=== PATIENT | female | born 1950 | race Caucasian/White ===

== ENCOUNTER → 2017-11-24 | Day surgery (SDC) | payer OTHER ==
--- NOTE | 2017-11-22 15:32 | Diagnostic Imaging Report ---
PROCEDURE: Frontal and lateral views of the chest. COMPARISON: None. INDICATIONS: PRE-OP FINDINGS: Lines/tubes: None. Lungs: The lungs are well inflated and clear. There is no evidence of pneumonia or pulmonary edema. Pleura: There is no pleural effusion or pneumothorax. Heart and mediastinum: Enlarged cardiac silhouette. Pulmonary vasculature is normal. Bones: No acute bony abnormality. Degenerative changes in the thoracic spine. IMPRESSION: 1. enlarged cardiac silhouette, without acute cardiopulmonary disease. Geoff Erwin M.D. Dictated by: Geoff Erwin M.D. on 11/22/2017 at 15:35 Electronically approved by: Geoff Erwin M.D. on 11/22/2017 at 15:35
[2017-11-22 15:36] LABS: BASOPHILS % 0.4 % (0.0-1.0); EOSINOPHILS # (AUTO) 0.2 (0.0-0.4); EOSINOPHILS % 2.2 % (0.0-6.0); HEMATOCRIT 41.9 % (34.2-44.1); HEMOGLOBIN 14.2 g/dL (12.0-16.0); LYMPHOCYTES # (AUTO) 1.7 (1.0-3.2); LYMPHOCYTES % 23.4 % (18.0-39.1); MEAN CORPUSCULAR HEMOGLOBIN 32.8 pg (28-32); MEAN CORPUSCULAR HGB CONC 33.9 g/dL (31-35); MEAN CORPUSCULAR VOLUME 96.8 fL (81-99); MONOCYTES # (AUTO) 0.6 (0.2-0.8); MONOCYTES % 8.5 % (4.4-11.3); NEUTROPHILS # (AUTO) 4.8 (2.1-6.9); PLATELET COUNT 184 x10e3/uL (140-360); RED BLOOD COUNT 4.33 x10e6/uL (3.6-5.1); RED CELL DISTRIBUTION WIDTH 14.7 % (11.7-14.4)
[2017-11-22 15:54] LABS: ANION GAP 13.4 mmol/L (8-16); CALCIUM 9.9 mg/dL (8.4-10.2); CREATININE, SERUM 1.2 mg/dL (0.57-1.11); POTASSIUM 3.4 mmol/L (3.5-5.1)
[~2017-11-24] MED LIST: BUPIVACAINE HCL 0.5% INJ 30 ML VIAL INJ ONE; CEFAZOLIN SOD 1 GM VIAL ONE; DEXAMETHASONE SOD PHOS INJ 4 MG/ML VIAL ONE; EPHEDRINE SULFATE INJ 50 MG/10 ML SYR ONE; FENTANYL CITRATE/PF 100MCG/2 ML INJ ONE; GABAPENTIN300 MG PO; LIDOCAINE HCL 2% LOCAL INJ 5 ML SDV VIAL INJ ONE; LIPITOR20 MG PO; METOPROLOL-HCT1 EAC1 PO; MIDAZOLAM HCL 2 MG/2 ML VIAL ONE; MUPIROCIN 2% OINT 22 GM TUBE ONE; ONDANSETRON HCL INJ 2 MG/ML VIAL ONE; PROPOFOL IV EMULSION 10 MG/ML 20 ML VIAL ONE; SEROQUEL25 MG PO; SEVOFLURANE INHAL SOLN 250 ML PEN BTL ONE; TOPIRAMATE100 MG PO; WARFARIN SODIUM5 MG PO; XARELTO20 MG PO
[2017-11-24 06:10] LABS: INR 1.06
[2017-11-24 06:11] LABS: PARTIAL THROMBOPLASTIN TIME 28.9 seconds (23.8-35.5)
--- NOTE | 2017-11-24 07:53 | Operative Report ---
DATE OF PROCEDURE: November 24, 2017 PREOPERATIVE DIAGNOSIS: Left foot first metatarsocuneiform exostosis. POSTOPERATIVE DIAGNOSIS: Left foot first metatarsocuneiform exostosis. PLANNED PROCEDURE: Left first metatarsocuneiform exostectomy. SURGEON: Dr. Avelino DPM DIE HARDENER: Henry Velasquez DPM ANESTHESIA: General with a postoperative block consisting of 10 mL of 0.5% Marcaine plain mixed with 1 mL of dexamethasone phosphate. HEMOSTASIS: Pneumatic thigh tourniquet set at 350 mmHg for a total time of approximately 15 minutes. MATERIALS: 3-0 Vicryl, 4-0 nylon. ESTIMATED BLOOD LOSS: Less than 10 mL. PATHOLOGY: None. PROCEDURE NOTE: The patient was seen in the preoperative waiting room where the correct procedure and site were identified. The patient was brought to the operating room and placed on the operating table in the supine position. General anesthesia was initiated at this time. A well-padded pneumatic tourniquet was placed about the patient's left thigh. The left foot, ankle, and leg were then scrubbed, prepped, and draped in the usual aseptic manner. The left foot, ankle, and leg were exsanguinated with an Esmarch bandage, and the pneumatic thigh tourniquet was inflated to 350 mmHg for a total time of approximately 15 minutes. Attention was directed to the dorsomedial aspect of the patient's left foot where a large approximately 2 cm x 1.5 cm x 1 cm exostosis is palpable along the dorsomedial aspect of the first metatarsocuneiform joint. Utilizing a #15 blade, a 4-cm linear incision was made directly over the exostosis. Incision was carried through the subcutaneous tissue, them from deeper underlying structures. All vital neurovascular structures were identified, retracted medially and laterally, and all bleeders were cauterized and ligated as deemed necessary. At this time, an incision was made in the joint capsule directly over the first metatarsocuneiform joint to allow for good visualization of the exostosis. Utilizing an osteotome and mallet, rongeur and rotary cathy, the exostosis was excised and smoothed down to anatomic alignment. The wound was then flushed with copious amounts of sterile saline. Capsule and deep tissue reapproximated with 3-0 Vicryl, subcutaneous tissue with 3-0 Vicryl, and the skin was closed using a running interlocking stitch with 4-0 Prolene. Incision site was dressed with Adaptic, 4 x 4's, Kerlix, Natan wrap, and a postop shoe. Patient tolerated the procedure and anesthesia well. The patient was transferred to the postoperative recovery unit with vital signs stable and vascular status intact. The patient was monitored there for a short period of time before being sent home with the following written and oral instructions: 1. Keep the dressing clean, dry, and intact. 2. The patient is to remain partial weightbearing in a walker to avoid excessive ambulation until being seen in the office. 3. The patient was given the office number and instructed to contact us if any problems should arise. Dictated by: Henry Velasquez DPM Job#: [id number]
--- OUTSIDE RECORDS SUMMARY | 2018-03-08 13:48 | XMS REPORT ---
Author Author [facility] Address Unknown Phone Unavailable Care Team Providers Care Corporate Safety Coordinator Name Role Phone Praveen BRAND Unavailable Unavailable Problems This patient has no known problems. Allergies, Adverse Reactions, Alerts This patient has no known allergies or adverse reactions. Medications This patient has no known medications. Results Test Description Test Time Test Comments Text Results Atomic Results Result Comments CHEST 2 VIEWS 2017-11-22 15:35:00 [place] [id number] [place] [id number] Patient Name: YAYO APPIAH MR #: [id number] : 1950 Age/Sex: 67/F Req #: [id number] Adm Physician: Ordered by: JIMY VARGAS MD Report #: [id number] Location: OR Room/Bed: Procedure: [id number] DX/CHEST 2 VIEWS Exam Date: 11/22/17 Exam Time: 1515 REPORT STATUS: Signed PROCEDURE: Frontal and lateral views of the chest. COMPARISON: None. INDICATIONS: PRE-OP FINDINGS: Lines/tubes: None. Lungs: The lungs are well inflated and clear. There is no evidence of pneumonia or pulmonary edema. Pleura: There is no pleural effusion or pneumothorax. Heart and mediastinum: Enlarged cardiac silhouette. Pulmonary vasculature is normal. Bones: No acute bony abnormality. Degenerative changes in the thoracic spine. IMPRESSION: 1. enlarged cardiac silhouette, without acute cardiopulmonary disease. Will Erwin M.D. Dictated by: Will Erwin M.D. on 11/22/2017 at 15:35 Electronically approved by : Will Erwin M.D. on 11/22/2017 at 15:35 Dictated By: WILL ERWIN MD [id number] Transcribed By: ALTAF on 11/22/17 1535 COPY TO: JIMY VARGAS MD
== END | disposition home or self-care (01) ==
LOC: OR 05:39
PROVIDERS: ATTEND Podiatrist Foot & Ankle Surgery
DX: M77.52 Other enthesopathy of left foot and ankle (principal); I10 Essential (primary) hypertension; Z88.2 Allergy status to sulfonamides; Z01.810 Encounter for preprocedural cardiovascular examination; Z01.812 Encounter for preprocedural laboratory examination; Z01.818 Encounter for other preprocedural examination; Z79.01 Long term (current) use of anticoagulants; Z79.02 Long term (current) use of antithrombotics/antiplatelets; Z86.73 Personal history of transient ischemic attack (TIA), and cerebral infarction without residual deficits; Z87.891 Personal history of nicotine dependence
CPT/HCPCS: 28104; 36415 ×2; 71046; 80048; 85025; 85610; 85730; 93005; J0690; J1100; J2001; J2250; J2405

== ENCOUNTER → 2018-12-28 | Outpatient (CLI) | payer OTHER ==
[~2018-12-28] MED LIST changes: -BUPIVACAINE HCL 0.5% INJ 30 ML VIAL INJ ONE; +CAFERGOT TABLE1 EACH PO; -CEFAZOLIN SOD 1 GM VIAL ONE; -DEXAMETHASONE SOD PHOS INJ 4 MG/ML VIAL ONE; -EPHEDRINE SULFATE INJ 50 MG/10 ML SYR ONE; -FENTANYL CITRATE/PF 100MCG/2 ML INJ ONE; +IOPAMIDOL 370 MG/ML 200 ML INFUS..BTL INJ ONE; -LIDOCAINE HCL 2% LOCAL INJ 5 ML SDV VIAL INJ ONE; -MIDAZOLAM HCL 2 MG/2 ML VIAL ONE; -MUPIROCIN 2% OINT 22 GM TUBE ONE; +NORCO 7.5-3251 EACH PO; -ONDANSETRON HCL INJ 2 MG/ML VIAL ONE; -PROPOFOL IV EMULSION 10 MG/ML 20 ML VIAL ONE; -SEVOFLURANE INHAL SOLN 250 ML PEN BTL ONE; +SODIUM CHLORIDE 0.9% 100 ML 100 ML ONE; +SODIUM CHLORIDE 0.9% 500ML 500 ML ONE; +ZOMIG5 MG PO
[2018-12-28 12:16] LABS: CREATININE, SERUM 1.05 mg/dL (0.57-1.11)
--- NOTE | 2018-12-28 16:35 | Diagnostic Imaging Report ---
CTA NECK HISTORY: Right carotid stenosis COMPARISON: None. TECHNIQUE: CTA of the neck was performed with intravenous iodine based contrast. Coronal, sagittal, and oblique maximum intensity projection reformations were created. One or more of the following dose reduction techniques were used: Automated exposure control, adjustment of the mA and/or kV according to patient size, and/or utilization of iterative reconstruction technique. 100 mL of Isovue-370 were administered. DISCUSSION: If present, any cervical carotid stenosis will be measured as a percentage relative to the viejas artery distal to the stenosis (NASCET). Mild calcifications are seen in the aortic arch and proximal great vessels. The left common carotid and innominate arteries have a common origin, a normal variant. Right Carotid: Mild to moderate calcified plaque is seen at the right carotid bulb. Associated focal calcified intimal flap at the right carotid bulb may be due to chronic dissection. There is up to 80% focal stenosis in the proximal right internal carotid artery. The upper right cervical internal carotid artery is mildly tortuous. 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 Left Carotid: Moderate calcified plaque in the left carotid bulb causes 50-69% focal stenosis in the proximal left internal carotid artery. Right vertebral artery: Mild scattered calcified plaque in the V1 and V2 segments do not cause significant stenosis. Left vertebral artery: Mild scattered calcified plaque in the V1, V2, and V3 segments do not cause significant stenosis. The intracranial arterial vasculature is partially visualized. Mild scattered calcified atherosclerosis is seen in the anterior and posterior circulation without significant stenosis. Additional findings: There is focal mucosal thickening in the right valleculae. The right vocal cord is displaced medially with associated right piriform sinus enlargement; this is suggestive of right vocal cord paralysis. Mild mosaic attenuation in the upper lungs is nonspecific. There are mild to moderate degenerative changes throughout the spine. Coronary artery calcifications are partially visualized. IMPRESSION: 1. Mild to moderate right carotid bulb calcified plaque with focal calcified intimal flap, which may be due to chronic dissection. There is up to 80% associated focal stenosis in the proximal right internal carotid artery. 2. 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 3. Moderate left carotid bulb calcified plaque causes 50-69% focal stenosis in the proximal left internal carotid artery. 4. Mild scattered bilateral cervical carotid artery calcified plaque without significant stenosis. Signed by: Dr. Hood Dutta M.D. on 12/28/2018 4:32 PM
== END ==
LOC: CT 11:33 → MERGE 11:33
PROVIDERS: ATTEND Internal Medicine Critical Care Medicine
DX: I65.21 Occlusion and stenosis of right carotid artery (principal)
CPT/HCPCS: 36415; 70498; 82565; 84520; J7040; Q9967

== ENCOUNTER → 2019-01-03 | Day surgery (SDC) | payer OTHER ==
[2019-01-01 13:48] LABS: BASOPHILS % 0.5 % (0.0-1.0); EOSINOPHILS # (AUTO) 0.2 (0.0-0.4); EOSINOPHILS % 3.2 % (0.0-6.0); HEMATOCRIT 38.2 % (34.2-44.1); HEMOGLOBIN 12.6 g/dL (12.0-16.0); LYMPHOCYTES # (AUTO) 1.4 (1.0-3.2); LYMPHOCYTES % 24.5 % (18.0-39.1); MEAN CORPUSCULAR HEMOGLOBIN 31.7 pg (28-32); MONOCYTES # (AUTO) 0.5 (0.2-0.8); NEUTROPHILS # (AUTO) 3.6 (2.1-6.9); NEUTROPHILS % 63.3 % (38.7-80.0); PLATELET COUNT 152 x10e3/uL (140-360); RED BLOOD COUNT 3.98 x10e6/uL (3.6-5.1); RED CELL DISTRIBUTION WIDTH 14.2 % (11.7-14.4)
[2019-01-01 13:57] LABS: INR 1.42; PROTHROMBIN TIME 17.9 seconds (11.9-14.5)
[2019-01-01 13:58] LABS: PARTIAL THROMBOPLASTIN TIME 37.2 seconds (23.8-35.5)
[2019-01-01 14:07] LABS: ALBUMIN 3.5 g/dL (3.5-5.0); ALBUMIN/GLOBULIN RATIO 0.8 (0.8-2.0); ANION GAP 14.3 mmol/L (8-16); CREATININE, SERUM 1.1 mg/dL (0.57-1.11); POTASSIUM 3.3 mmol/L (3.5-5.1)
--- NOTE | 2019-01-01 14:16 | Diagnostic Imaging Report ---
EXAMINATION: CHEST 2 VIEWS INDICATION: Pre-operative COMPARISON: None FINDINGS: TUBES and LINES: None. LUNGS: The lung volumes are normal. No focal consolidation or pulmonary edema. 8 mm calcified granuloma in the left lung base. PLEURA: No pleural effusion or pneumothorax. HEART AND MEDIASTINUM: The heart is at the upper limits of normal for size. Atherosclerotic calcifications of the thoracic aorta. BONES AND SOFT TISSUES: No acute fracture or dislocation. UPPER ABDOMEN: No free air under the diaphragm. IMPRESSION: No focal pneumonia or pulmonary edema. Borderline cardiomegaly. Signed by: Hernan Menchaca MD on 01/01/2019 2:13 PM
--- NOTE | 2019-01-01 15:15 | NUR ---
Spoke with Corinne Stewart RN with Dr. Jeff's office and notified her of labs: potassium 3.3, estimated GFR 50, AST 63, and ALT 56; chest x-ray results: borderline cardiomegaly. Corinne Stewart RN stated she will notify Dr. Jeff. Addendum: 01/01/19 at 1519 by Jessenia Campos RN Also notified Corinne Stewart RN that PT 17.9, INR 1.47, PTT 37.2.
[2019-01-03] VITALS (10 sets, daily range): BP systolic 102–137; BP diastolic 52–80
[~2019-01-03] VITALS: Ht 160 cm; Wt 73.9 kg
[~2019-01-03] MED LIST changes: +FENTANYL CITRATE/PF 100MCG/2 ML INJ ONE; +HEPARIN SOD (PORCINE) 1000 UNIT/ML 30ML ONE; +HEPARIN SOD/SOD CHLORIDE 2,000 ML ONE; +LIDOCAINE HCL 2% LOCAL 20 ML VIAL ONE; +MIDAZOLAM HCL 2 MG/2 ML VIAL ONE; +NITROGLYCERIN/D5W 200 MCG/ML 250 ML ONE; -SODIUM CHLORIDE 0.9% 100 ML 100 ML ONE; +SODIUM CHLORIDE 0.9% 1000ML 1,000 ML ONE; -SODIUM CHLORIDE 0.9% 500ML 500 ML ONE; +VERAPAMIL HCL 2.5 MG/ML 2 ML VIAL ONE
[2019-01-03 07:13] LABS: INR 0.97; PROTHROMBIN TIME 13.4 seconds (11.9-14.5)
--- NOTE | 2019-01-03 09:45 | NUR ---
0945 bedside report received from Sukh RIGGS. Identiferx2 [facility] no fix Surgical followup scheduled DR Goodwin service.Alert oriented and appropriate, PERRLA, respirations even and unlabored to room air. Pulses x4 extremities equal and strong. Pedal pulses PT/DP x4 Cap fill brisk < 3 sec. Skin warm and dry integrity appears D/I. IV 20g to rt wrist presents healthy w/o s/s of infiltration or complaint. Abdomen soft and supple. pt offered toileting, denies need to urinate or defecate. No personal affects with patient. Family . Pt and family verbalizes understanding of POC. Currently w/o complaint of pain or need. Rt tr band air removal in progress Reported approx 6cc remain in bladder TR band NO gross issues pain pallor pressure or dysrhythmia Normal neuro vascular function. prosper/johny
--- NOTE | 2019-01-03 09:45 | NUR ---
0945am RADIAL Compression removal: Initial Cuff volume (12cc reported +6) -2cc cc Removed No hematoma/bleeding noted with normal neurovascular function. Air removal completed Stasis achieved sterile 2x2,Tegaderm, Coban dressing No hematoma, bleeding noted with no neurovascular function. Wrist splint in place. Pt instructed on POC. Ds/Rn
--- NOTE | 2019-01-03 10:15 | NUR ---
1015am Pt meets DC criteria. Rt Radial assessed for s/s of complication and presence of hematoma. D/I warm, dry, no discolor, and pulses present. IV removed from Rt Wrist. Distal tip appears intact. VS WNL. Pt denies pain, sob, or need at this time. Family at bedside. Review of discharge paperwork and follow up instructions. verbalized understanding. Pt to wheelchair and transported to front of hospital. Transferred to private vehicle under own strength w/o incident with DC paperwork in hand ds/rn
--- NOTE | 2019-01-03 14:42 | Operative Report ---
DATE OF PROCEDURE: SURGEON: Edwin Jeff MD PROCEDURE: Left heart catheterization. INDICATION: Aortic stenosis. COMPLICATIONS: None. ANESTHESIA: Versed and fentanyl. TECHNIQUE: As follows, the right wrist was draped and prepped in the usual manner. The area was anesthetized with lidocaine. Standard Seldinger technique was used to place a 6-Kyrgyz sheath into the right radial artery without difficulty. A TIG catheter was used to selectively engage the left coronary artery and to selectively engage the right coronary artery. There were no complications. RESULTS: As follows: 1. Normal left main trunk. 2. There is a large left anterior descending artery which gave rise to a medium-sized diagonal branch. There was some calcification in the left anterior descending artery with no significant stenosis. 3. There was a medium-sized AV circumflex artery which gave rise to a large bifurcating obtuse marginal branch. There was 80% stenosis in the mid AV circumflex artery. 4. There was a large dominant right coronary artery which had 100% proximal occlusion. 5. Left ventriculogram was not done. The patient had severe aortic stenosis on the echocardiogram. CONCLUSION: The patient has severe aortic stenosis with 100% occlusion of the right coronary artery and 80% stenosis in the AV circumflex artery. CV surgery consultation will be required. Edwin Jeff MD DSH/MODL /[id number]
== END | disposition home or self-care (01) ==
LOC: CATH LAB 06:10
PROVIDERS: ATTEND Internal Medicine Cardiovascular Disease
DX: I35.0 Nonrheumatic aortic (valve) stenosis (principal); I25.10 Atherosclerotic heart disease of native coronary artery without angina pectoris; I25.82 Chronic total occlusion of coronary artery; I10 Essential (primary) hypertension; I71.4 Abdominal aortic aneurysm, without rupture; R09.89 Other specified symptoms and signs involving the circulatory and respiratory systems; E78.5 Hyperlipidemia, unspecified; Z79.01 Long term (current) use of anticoagulants; Z87.891 Personal history of nicotine dependence
CPT/HCPCS: 36415 ×2; 71046; 80053; 85025; 85610 ×2; 85730; 93454; C1769; C1887; J1644; J2001; J2250; J3010; J7030; Q9967

== ENCOUNTER → 2020-11-27 | Day surgery (SDC) | payer MEDICARE, BC ==
[2020-11-25 12:17] LABS: BASOPHILS % 0.4 % (0.0-1.0); EOSINOPHILS % 1.7 % (0.0-6.0); HEMATOCRIT 43.6 % (34.2-44.1); HEMOGLOBIN 14.1 g/dL (12.0-16.0); INR 0.95; LYMPHOCYTES % 24.2 % (18.0-39.1); MEAN CORPUSCULAR HEMOGLOBIN 33.1 pg (28-32); MEAN CORPUSCULAR HGB CONC 32.3 g/dL (31-35); MEAN CORPUSCULAR VOLUME 102.3 fL (81-99); MONOCYTES % 8.8 % (4.4-11.3); NEUTROPHILS % 64.3 % (38.7-80.0); PLATELET COUNT 153 x10e3/uL (140-360); PROTHROMBIN TIME 13.3 seconds (11.9-14.5); RED BLOOD COUNT 4.26 x10e6/uL (3.6-5.1); RED CELL DISTRIBUTION WIDTH 14.4 % (11.7-14.4)
[2020-11-25 12:18] LABS: ALBUMIN 3.8 g/dL (3.5-5.0); ALBUMIN/GLOBULIN RATIO 1.1 (0.8-2.0); ANION GAP 12.7 mmol/L (8-16); CREATININE, SERUM 1.13 mg/dL (0.57-1.11); EOSINOPHILS # (AUTO) 0.1 (0.0-0.4); LYMPHOCYTES # (AUTO) 1.3 (1.0-3.2); MONOCYTES # (AUTO) 0.5 (0.2-0.8); NEUTROPHILS # (AUTO) 3.4 (2.1-6.9); POTASSIUM 3.7 mmol/L (3.5-5.1)
[~2020-11-27] VITALS: Ht 160 cm; Wt 85.3 kg
[2020-11-27] VITALS (26 sets, daily range): BP systolic 98–133; BP diastolic 49–100
[~2020-11-27] MED LIST changes: +CRESTOR10 MG PO; +ELIQUIS2.5 MG PO; +EMGALITY S120 MG/1 M INJ; +FUROSEMIDE40 MG PO; -HEPARIN SOD (PORCINE) 1000 UNIT/ML 30ML ONE; +HEPARIN SOD/SOD CHLORIDE 1,000 ML ONE; +ISOSORBIDE MONO30 MG PO; +METOPROLOL SUCC25 MG PO; -NITROGLYCERIN/D5W 200 MCG/ML 250 ML ONE; +POTASSIUM CHLO20 ME1 PO; +TRAMADOL HCL100 MG PO; +UBRELVY100 MG PO; -VERAPAMIL HCL 2.5 MG/ML 2 ML VIAL ONE
== END | disposition home or self-care (01) ==
LOC: CATH LAB 07:49
PROVIDERS: ATTEND Internal Medicine Cardiovascular Disease
DX: I25.10 Atherosclerotic heart disease of native coronary artery without angina pectoris (principal); I35.0 Nonrheumatic aortic (valve) stenosis; R94.39 Abnormal result of other cardiovascular function study; I70.213 Atherosclerosis of native arteries of extremities with intermittent claudication, bilateral legs; E78.00 Pure hypercholesterolemia, unspecified; I10 Essential (primary) hypertension; Z88.2 Allergy status to sulfonamides; Z79.02 Long term (current) use of antithrombotics/antiplatelets; Z68.33 Body mass index [BMI] 33.0-33.9, adult; Z86.73 Personal history of transient ischemic attack (TIA), and cerebral infarction without residual deficits
CPT/HCPCS: 36415; 75625; 76937; 80053; 85025; 85610; 93460; C1751; C1769 ×3; C1887; C1894; J2001; J2250; J3010; J7030; Q9967; 99152; 99153

== ENCOUNTER → 2021-12-18 | Outpatient (CLI) | payer BC, MEDICARE ==
[~2021-12-18] MED LIST changes: -FENTANYL CITRATE/PF 100MCG/2 ML INJ ONE; -HEPARIN SOD/SOD CHLORIDE 1,000 ML ONE; -HEPARIN SOD/SOD CHLORIDE 2,000 ML ONE; -IOPAMIDOL 370 MG/ML 200 ML INFUS..BTL INJ ONE; -LIDOCAINE HCL 2% LOCAL 20 ML VIAL ONE; -MIDAZOLAM HCL 2 MG/2 ML VIAL ONE; -SODIUM CHLORIDE 0.9% 1000ML 1,000 ML ONE
[2021-12-18 09:48] LABS: HEMATOCRIT 28.1 % (34.2-44.1); HEMOGLOBIN 8.6 g/dL (12.0-16.0)
[2021-12-18 10:07] LABS: INR 0.94; PROTHROMBIN TIME 13.4 seconds (11.9-14.5)
[2021-12-18 10:08] LABS: PARTIAL THROMBOPLASTIN TIME 28.5 seconds (23.8-35.5)
[2021-12-18 10:10] LABS: CREATININE, SERUM 1.19 mg/dL (0.57-1.11)
== END ==
LOC: DX 09:01
PROVIDERS: ATTEND Internal Medicine Infectious Disease
DX: M86.141 Other acute osteomyelitis, right hand (principal); M65.841 Other synovitis and tenosynovitis, right hand
CPT/HCPCS: 36415; 36569; 71045; 82565; 84520; 85014; 85018; 85049; 85610; 85730

== ENCOUNTER → 2022-01-14 | Day surgery (SDC) | payer BC, MEDICARE ==
[~2022-01-14] MED LIST changes: +ACETAMINOPHEN 1000 MG/100 ML 100 ML IV ONE; +ACETAMINOPHEN 1000 MG/100 ML IV ONE; +ACETAMINOPHEN-1 EAC4 PO; +BUPIVACAINE 0.25% 30ML SDV ONE; +CEFEPIME-D1 GM/50 ML IVP; +COREG3.125 MG PO; +CUBICIN500 MG/VIA IV; +DIFLUCAN100 MG PO; +LIDOCAINE HCL 1% LOCAL INJ 20 ML VIAL ONE; +LIDOCAINE HCL 2% LOCAL INJ 5 ML SDV VIAL INJ ONE; +MUPIROCIN 2% OINT 22 GM TUBE ONE; +POVIDONE IODINE 0.05% 0.05 % ML PO ONE; +PROPOFOL IV EMULSION 10 MG/ML 20 ML VIAL ONE; +ZESTRIL10 MG PO
[2022-01-14 08:30] VITALS: BP 95/52
== END | disposition home or self-care (01) ==
LOC: OR 07:41
PROVIDERS: ATTEND Plastic Surgery
DX: L03.021 Acute lymphangitis of right finger (principal); I10 Essential (primary) hypertension; G43.909 Migraine, unspecified, not intractable, without status migrainosus; J45.909 Unspecified asthma, uncomplicated; Z87.891 Personal history of nicotine dependence; I25.10 Atherosclerotic heart disease of native coronary artery without angina pectoris; K76.0 Fatty (change of) liver, not elsewhere classified; I25.2 Old myocardial infarction; Z88.2 Allergy status to sulfonamides; Z01.812 Encounter for preprocedural laboratory examination; Z20.822 Contact with and (suspected) exposure to COVID-19; Z79.02 Long term (current) use of antithrombotics/antiplatelets; Z79.899 Other long term (current) drug therapy; Z86.73 Personal history of transient ischemic attack (TIA), and cerebral infarction without residual deficits
CPT/HCPCS: 0223U; 26011; 36415; J0131; J0690; J2001 ×2; J2704